=== PATIENT | male | born 1965 | race Caucasian/White ===

== ENCOUNTER 2018-04-03 12:26 | Emergency (ER) | payer OTHER ==
[2018-04-03 13:13] VITALS: BP 126/80
--- NOTE | 2018-04-03 13:33 | UC ---
[facility] Dental HPI - HPI Summary HPI Summary: pain back left teeth with some swelling--erythema around teeth some swelling-- no fevers , chills - History of Current Complaint Chief Complaint: UCDentalProblem Stated Complaint: DENTAL COMPLAINT Time Seen by Provider: 04/03/18 13:21 Hx Obtained From: Patient Onset/Duration: Sudden Onset Pain Intensity: 3 Pain Scale Used: 0-10 Numeric Aggravating Factor(s): Nothing Alleviating Factor(s): Nothing Related History: Previous Dental Care on Same Tooth, Swelling - Allergies/Home Medications Allergies/Adverse Reactions: Allergies Allergy/AdvReac Type Severity Reaction Status Date / Time No Known Allergies Allergy Verified 04/03/18 13:06 Home Medications: Home Medications Terbinafine HCl 1 tab DAILY 04/03/18 [History Confirmed 04/03/18] PMH/Surg Hx/FS Hx/Imm Hx Previously Healthy: Yes - Surgical History Surgical History: Yes Surgery Procedure, Year, and Place: Sinus surgery - Family History Known Family History: Positive: None - Social History Occupation: Employed Full-time Lives: With Family Alcohol Use: Daily Alcohol Amount: 2-3 beers per day Substance Use Type: None Smoking Status (MU): Former Smoker Type: Cigarettes Amount Used/How Often: 4 cigs per day Length of Time of Smoking/Using Tobacco: 6 years Have You Smoked in the Last Year: Yes When Did the Patient Quit Smoking/Using Tobacco: trying to quit Household Exposure Type: Cigarettes Review of Systems All Other Systems Reviewed And Are Negative: Yes Constitutional: Positive: Negative Skin: Positive: Negative Eyes: Positive: Negative ENT: Positive: Dental Pain - left side of face painful Respiratory: Positive: Negative Cardiovascular: Positive: Negative Gastrointestinal: Positive: Negative Genitourinary: Positive: Negative Motor: Positive: Negative Neurovascular: Positive: Negative Musculoskeletal: Positive: Negative Neurological: Positive: Negative Psychological: Positive: Negative Is Patient Immunocompromised?: No Physical Exam Triage Information Reviewed: Yes Appearance: Well-Appearing, No Pain Distress, Well-Nourished Vital Signs: Initial Vital Signs Temp 97.4 F 04/03/18 13:08 Pulse 65 04/03/18 13:08 Resp 16 04/03/18 13:08 BP 126/80 04/03/18 13:08 Pulse Ox 99 04/03/18 13:08 Vital Signs Reviewed: Yes Eye Exam: Normal Eyes: Positive: Conjunctiva Clear ENT Exam: Normal ENT: Positive: Normal ENT inspection, Hearing grossly normal, Pharynx normal, TMs normal, Dental tenderness, Uvula midline. Negative: Nasal congestion, Nasal drainage, Trismus, Muffled voice, Hoarse voice, Sinus tenderness Dental Exam: Normal Neck exam: Normal Neck: Positive: Supple, Nontender, No Lymphadenopathy Respiratory Exam: Normal Respiratory: Positive: Chest non-tender, Lungs clear, Normal breath sounds, No respiratory distress, No accessory muscle use Cardiovascular Exam: Normal Cardiovascular: Positive: RRR, No Murmur, Pulses Normal, Brisk Capillary Refill Musculoskeletal Exam: Normal Musculoskeletal: Positive: Strength Intact, ROM Intact, No Edema Neurological Exam: Normal Neurological: Positive: Alert, Muscle Tone Normal Psychological Exam: Normal Skin Exam: Normal Dental Complaint Course/Dx - Course Course Of Treatment: perodex rinse, amoxicillin, tylenol/ibuprofen follow with dentist as planned - Differential Dx/Diagnosis Provider Diagnosis: Dental abscess Discharge - Sign-Out/Discharge Documenting (check all that apply): Patient Departure All imaging exams completed and their final reports reviewed: No Studies - Discharge Plan Condition: Stable Disposition: HOME Prescriptions: Amoxicillin PO (*) [Amoxicillin 875 MG (*)] 875 mg PO BID #20 tab Chlorhexidine MW 0.12% 473ML* [Peridex Mouth Wash 0.12%*] 15 ml MT BID #473 ml Patient Education Materials: Dental Abscess (ED), Toothache (ED) Referrals: Harlan Moffett MD [Primary Care Provider] - If Needed - Billing Disposition and Condition Condition: STABLE Disposition: Home - Attestation Statements Provider Attestation: I was available for consult. This patient was seen by the RASHAD. The patient was not presented to, seen by, or examined by me. EK
== END 2018-04-03 13:42 | disposition home or self-care (01) ==
LOC: UCCORT 12:26
DX: K04.7 Periapical abscess without sinus (principal); Z87.891 Personal history of nicotine dependence
CPT/HCPCS: 99202; G0463

== ENCOUNTER → 2018-07-05 05:42 | Day surgery (SDC) | payer OTHER ==
[~2018-07-05 05:42] MED LIST: Acetaminophen TAB* 325 MG PO PRN; Buffered Lidocaine 1% SYRIN* 1 ML/SYRINGE INTRADERM ONE; Bupivacaine 0.5% W/EPI SDV* 30 ML VIAL ONE; Bupivacaine 0.5%* 50 ML VIAL ONE; KETAMINE HCL* 50 MG/ML 10 ML VIAL ONE; Ketorolac INJ* 30 MG/ML 1 ML VIAL IV PRN; Lactated Ringers 1000 ML Bag* 1,000 ML IV SCH; Lidocaine 1% INJ* 10 MG/ML 30 ML SDV ONE; Lidocaine 2% PF * 5 ML VIAL ONE; Midazolam* 1 MG/ML 2 ML VIAL (2 MG) ONE; Naloxone* 0.4 MG/ML 1 ML VIAL IV PRN; Ondansetron ODT TAB* 4 MG PO PRN; Propofol* 10 MG/ML 20 ML BTL ONE; Propofol* 500 MG/50 ML BTL ONE; ceFAZolin 2 GM in NS PREMIX(*) 2 GM/100 ML BAG IVPB ONE; fentaNYL* 50 MCG/ML 2 ML VIAL (100 MCG VIAL) IV PRN; fentaNYL* 50 MCG/ML 2 ML VIAL (100 MCG VIAL) ONE; oxyCODONE TAB* 5 MG TAB PO PRN
--- NOTE | 2018-07-05 09:16 | OP ---
CC: Dr. Harlan Moffett * DATE OF OPERATION: 07/05/[address] - [facility] DATE OF : 61 SURGEON: Cleve Horn MD. [employer] CONSULTANT: ANASTACIA Butler. PRE-OP DIAGNOSIS: Umbilical hernia. POST-OP DIAGNOSIS: Umbilical hernia. OPERATIVE PROCEDURE: Repair of umbilical hernia with mesh, open. INDICATIONS FOR PROCEDURE: Umbilical hernia. Risks included but not limited to bleeding, infection, injury to intraabdominal contents including the bowel explained to the patient who seemed to understand and agreed to the procedure and all questions were answered. DESCRIPTION OF PROCEDURE: The patient was taken to the operating room, placed supine. Preoperative antibiotics were given. After the successful induction of MAC sedation anesthesia, the abdomen was prepped and draped in sterile fashion. Time-out was preformed, correct patient and correct procedure. Skin was anesthetized with 0.5% Marcaine plain. A curvilinear incision was made below the umbilicus and carried down to the subcutaneous tissue. The hernia sac was opened revealing some incarcerated omentum, which was reduced back in the abdomen as a small defect. A finger was placed to the defect and the anterior abdominal wall was swept and found to be free of any adhesions. A Ventralex mesh patch was then placed through the defect, pulled up against the anterior abdominal wall and sutured in place with interrupted 0 Vicryl suture. Mesh size was small. EBL minimal. Hemostasis was intact. 3-0 Vicryl was used to approximate the deep layer, and the skin was closed with Monocryl and then glue. He tolerated the procedure well. He was taken to Recovery in stable condition. [id number]/[facility] #: [id number] [facility]
[2018-07-05 09:51] VITALS: BP 132/89
== END | disposition home or self-care (01) ==
LOC: OR 05:42
PROVIDERS: ATTEND Surgery
DX: K42.9 Umbilical hernia without obstruction or gangrene (principal); Z87.891 Personal history of nicotine dependence; E78.5 Hyperlipidemia, unspecified
CPT/HCPCS: C1781; J0690; J2250; J2704; J3010

== ENCOUNTER 2018-09-21 07:13 | Observation (INO) | payer OTHER ==
--- NOTE | 2018-09-21 07:34 | ED ---
HPI Chest Pain - HPI Summary HPI Summary: A 52 y/o male presents to [facility] with a chief complaint of intermittent chest tightness for two weeks. Per triage note, the patient denies SOB or palpitations , radiating pain, and claims that nothing alleviates or aggravates his symptoms. At triage he rated his pain as a 0/10 in severity. He reports that he has a little tightness now but no pain. He says that he waited long due to dizziness. He denies SOB or feeling tachycardic. He denies HTN or DM but has HLD. He is not on medications for HLD. He had a stress test a long time ago. He is a former smoker, quitting 8 months ago. He claims that he used to smoke 7 cigarettes a day. He denies a Hx of bloodclots in legs or lungs. 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 He denies feeling worse with exertion. - History of Current Complaint Chief Complaint: EDChestPainROMI Time Seen by Provider: 09/21/18 07:25 Hx Obtained From: Patient Onset/Duration: Started Weeks Ago, Still Present Timing: Intermittent Initial Severity: Mild Current Severity: None Pain Intensity: 0 Pain Scale Used: 0-10 Numeric Chest Pain Location: Diffuse Chest Pain Radiates: No Character: Tightness Aggravating Factor(s): Nothing Alleviating Factor(s): Nothing Associated Signs and Symptoms: Negative: Shortness of Breath, Fever, Palpitations - Allergy/Home Medications Allergies/Adverse Reactions: Allergies Allergy/AdvReac Type Severity Reaction Status Date / Time No Known Allergies Allergy Verified 09/21/18 07:18 Home Medications: Home Medications NK [No Home Medications Reported] 09/21/18 [History Confirmed 09/21/18] PMH/Surg Hx/FS Hx/Imm Hx Endocrine/Hematology History: Denies: Hx Diabetes, Hx Thyroid Disease Cardiovascular History: Reports: Hx Hypercholesterolemia Denies: Hx Hypertension Respiratory History: Reports: Hx Asthma - ONLY Sx CHILD Denies: Hx Chronic Obstructive Pulmonary Disease (COPD) GI History: Reports: Hx Jaundice Denies: Hx Ulcer - Surgical History Surgery Procedure, Year, and Place: 1999 Sinus surgery [place] Hx Anesthesia Reactions: No Infectious Disease History: No Infectious Disease History: Denies: Hx Hepatitis, Hx Human Immunodeficiency Virus (HIV), Traveled Outside the [place] in Last 30 Days - Family History Known Family History: Negative: Cardiac Disease - Social History Alcohol Use: Daily Alcohol Amount: 3 beers/day Substance Use Type: Reports: None Smoking Status (MU): Former Smoker Type: Cigarettes Amount Used/How Often: LESS THEN 1/2 PPD ONLY SMOKED ABOUT 6 YRS QUIT 12/2017 Length of Time of Smoking/Using Tobacco: 6 years Have You Smoked in the Last Year: Yes Review of Systems Negative: Fever Positive: Chest Pain. Negative: Palpitations Negative: Shortness Of Breath All Other Systems Reviewed And Are Negative: Yes Physical Exam - Summary Physical Exam Summary: GENERAL: Patient is a well-developed and nourished M who is lying comfortable in the stretcher. Patient is not in any acute respiratory distress. HEAD AND FACE: Normocephalic EYES: PERRLA, EOMI x 2. EARS: Hearing grossly intact. MOUTH: Oropharynx within normal limits. NECK: Supple, trachea is midline, no adenopathy, no JVD, no carotid bruit. CHEST: Symmetric, no tenderness at palpation LUNGS: Clear to auscultation bilaterally. No wheezing or crackles. CVS: Regular rate and rhythm, S1 and S2 present, no murmurs or gallops appreciated. ABDOMEN: Soft, non-tender. Bowel sounds are normal. No abnormal abdominal pulsations. EXTREMITIES: Full ROM in all major joints, no edema, no cyanosis or clubbing. NEURO: Alert and oriented x 3. No acute neurological deficits. Speech is normal and follows commands. SKIN: Dry and warm Triage Information Reviewed: Yes Vital Signs On Initial Exam: Initial Vitals Temp Pulse Resp BP Pulse Ox 97.2 F 63 16 146/94 97 09/21/18 07:15 09/21/18 07:15 09/21/18 07:15 09/21/18 07:15 09/21/18 07:15 Vital Signs Reviewed: Yes Diagnostics - Vital Signs Vital Signs Temp Pulse Resp BP Pulse Ox 09/21/18 07:15 97.2 F 63 16 146/94 97 - Laboratory Result Diagrams: 09/21/18 07:38 09/21/18 07:38 Lab Statement: Any lab studies that have been ordered have been reviewed, and results considered in the medical decision making process. - Radiology CXR Radiology Interpretation Completed By: Radiologist Summary of Radiographic Findings: No radiographic evidence for acute cardiopulmonary abnormality on this. portable chest x-ray. ED physician has reviewed this imaging report. - EKG 07:26 Cardiac Rate: NL - 67 bpm EKG Rhythm: Sinus Rhythm EKG Comparison: No Significant Change Summary of EKG Findings: NSR at 67 bpm, LAD, ST depression in the inferior leads. Re-Evaluation - Re-Evaluation First Eval Re-Evaluation Time: 08:34 Change: Unchanged Comment: discussed results. Will speak with hospitalist about getting a stress test today because the patient does not want to stay overnight. Second Eval Re-Evaluation Time: 08:59 Change: Unchanged Comment: Discussed plan for admission Chest Pain Course/Dx - Course Course Of Treatment: A 52 y/o male presents to [facility] with a chief complaint of intermittent chest tightness for two weeks. The physical exam was unremarkable. EKG at 07:26 showed NSR at 67 bpm, LAD, ST depression in the inferior leads. In the ED course the patient was given Aspirin PO and NTG SL. Bloodwork and chemistries obtained and are WNL. CXR impression: No radiographic evidence for acute cardiopulmonary abnormality on this. portable chest x-ray. Case discussed with Dr. Gunter, hospitalist, who accepted the patient for admission. I discussed results with patient. The patient agrees with this plan. - Diagnoses Provider Diagnoses: Chest pain - Provider Notifications Discussed Care Of Patient With: Lisbeth Gunter Time Discussed With Above Provider: 08:39 Instructed by Provider To: Other - recommended calling nuclear medicine to see if they have availability for a stress test today. Discharge - Sign-Out/Discharge Documenting (check all that apply): Patient Departure - admit Patient Received Moderate/Deep Sedation with Procedure: No - Discharge Plan Condition: Fair Disposition: ADMITTED TO [facility] Referrals: Harlan Moffett MD [Primary Care Provider] - - Billing Disposition and Condition Condition: FAIR Disposition: Admitted to [facility] - Attestation Statements Document Initiated by Scribe: Yes Documenting Scribe: Jose Bashir Provider For Whom Sarah Beth is Documenting (Include Credential): Asher Echevarria MD Scribe Attestation: Jose Small scribed for Asher Echevarria MD on 09/21/18 at 0921. Scribe Documentation Reviewed: Yes Provider Attestation: The documentation as recorded by the scribe, Jose DesRochers accurately reflects the service I personally performed and the decisions made by me, Samuel Echevarria MD Status of Scribe Document: Viewed Consult Consult: At 08:41 Discussed case with nuclear medicine who recommended calling cardio. At 08:42 Discussed case with cardio who reports that the hospitalist should put the stress test order through to get the patient in within 24 hours. At 08:[address] Gunter, hospitalist, who will admit the patient.
[2018-09-21 07:45] LABS: ABS Basophils 0.1 10^3/ul (0-0.2); ABS Eosinophils 0.2 10^3/ul (0-0.6); ABS Lymphocytes 1.4 10^3/ul (1.0-4.8); ABS Monocytes 0.5 10^3/ul (0-0.8); ABS Neutrophils 4.6 10^3/ul (1.5-7.7); Eosinophil % 3.7 %; Hematocrit 46 % (42-52); Hemoglobin 15.3 g/dL (14.0-18.0); Lymphocyte % 20.4 %; Mean Corpuscular HGB Conc 34 g/dL (31-36); Mean Corpuscular Hemoglobin 30 pg (27-31); Mean Corpuscular Volume 90 fL (80-94); Mean Platelet Volume 9.8 fL (7.4-10.4); Platelet Count 144 10^3/uL (150-450); Red Blood Count 5.09 10^6 /uL (4.18-5.48); Red Cell Distribution Width 14 % (10-15); White Blood Count 6.8 10^3/uL (3.5-10.8)
[2018-09-21] MEDS ORDERED: Nitroglycerin TAB 0.4 MG* 0.4 MG TAB SL ONE (07:53)
[2018-09-21] MEDS ORDERED: Aspirin 81 mg CHEW TAB* 81 MG TAB.CHEW PO ONE (07:53)
[2018-09-21 07:54] LABS: Activated Partial Thrombo Time 36.2 seconds (26.0-38.0)
[2018-09-21 08:02] LABS: Albumin 4.3 g/dL (3.2-5.2); Albumin/Globulin Ratio 1.6 (1-3); BUN/Creatinine Ratio 17.4 (8-20); Calcium 9.4 mg/dL (8.6-10.3); EGFR African American 112.1 (>60); EGFR Non-African American 92.7 (>60); Globulin 2.7 g/dL (2-4); Potassium 3.8 mmol/L (3.5-5.0); Total Bilirubin 0.6 mg/dL (0.2-1.0)
[2018-09-21] MEDS ORDERED: Al Hydrox/Mg Hydrox/Simet LIQ* 30 ML UDC PO PRN (09:37)
[2018-09-21] MEDS ORDERED: Acetaminophen TAB* 325 MG PO PRN (09:37)
--- NOTE | 2018-09-21 10:50 | HP ---
CC: Dr. Moffett * HISTORY AND PHYSICAL: DATE OF ADMISSION: 09/21/18 PRIMARY CARE PROVIDER: Dr. Moffett. CHIEF COMPLAINT: Chest pain. HISTORY OF PRESENT ILLNESS: Roberto Suárez is a 52-year-old male with a history of asthma and recent umbilical hernia repair in June of 2018, who presented to the hospital concerned for his left-sided chest pain. The patient actually stated that it is not chest pain but sensation of pulling underneath his left breast. He stated that he would have it occasionally for the past 2 weeks. It would last up to 2 hours. This sensation is not associated with shortness of breath or diaphoresis. It is not associated with exercise. The patient stated that it occurs occasionally, but usually when he is active he does not feel it. He has been sleeping well and the discomfort does not occur at night. His exercise tolerance is unchanged. The patient was recommended by the ED physician for overnight observation with stress test in the morning. MEDICATIONS: Currently none. ALLERGIES: No known drug allergies. FAMILY HISTORY: Father's history is unknown. Mother with a history of breast cancer. One sister with melanoma and another sister with breast cancer and thyroid problems. SOCIAL HISTORY: The patient has a history of smoking for 10 years, half a pack per day and he quit 8 months ago. He denies any drug use and he drinks 3 beers a day. 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 He lives with his daughter and his surrogate is his sister Sheri Perez. REVIEW OF SYSTEMS: Please see history of present illness. All the remaining 12 systems were reviewed with the patient and were otherwise negative with the exception of that the patient stated after he stopped smoking he had an unintentional weight gain of approximately 20 pounds for the past year. PHYSICAL EXAMINATION GENERAL: The patient is a pleasant 52-year-old male who is in no acute distress. Alert, awake, and oriented x3. VITAL SIGNS: Blood pressure 122/75, heart rate of 63 and regular, respiratory rate 17, oxygen saturation 97% on room air, temperature 97.2. HEENT: Head atraumatic, normocephalic. Eyes: Pupils are equal, round, and reactive to light and accommodation. Oropharynx clear. Mucosa moist. NECK: Supple. No JVD. No bruits bilaterally. RESPIRATORY: Clear to auscultation bilaterally. CARDIOVASCULAR: Regular rate and rhythm. No murmur. ABDOMEN: Soft and nontender. Bowel sounds present in all 4 quadrants. EXTREMITIES: There is no edema. Pulses +2 bilaterally. No clubbing or cyanosis. NEUROLOGIC: Speech clear. Cranial nerves II through XII grossly intact. Motor strength is 5/5 bilaterally. SKIN: On evaluation of the skin, the patient's umbilical incision after the umbilical hernia repair has healed with no evidence of dehiscence. PSYCHIATRIC: The patient is oriented x3 with no evidence of anxiety or depression. LABORATORY DATA: Shows a white blood cell count of 6.8, hemoglobin of 15.3, hematocrit of 46, and platelets of 144. D-dimer was below 200. Sodium was 135, potassium 3.8, chloride 102, carbon dioxide 36, BUN 15, creatinine of 0.86. Liver function tests were unremarkable. Troponin of 0. The patient's EKG shows normal sinus rhythm with a heart rate of 67 beats per minute with no specific ST-depressions in leads 1 and 2 and negative T in lead 3 that is consistent with prior EKGs. Portable chest x-ray, impression: "No radiographic evidence for acute cardiopulmonary abnormality on his portable chest x-ray." ASSESSMENT AND PLAN: 1. Somewhat unspecific chest pain. The patient with a history of smoking and obesity. The patient is going to be placed on overnight observation with a plan for stress test in the morning. He is going to be placed on daily baby aspirin and will follow up his troponins. 2. For DVT prophylaxis, heparin is going to be started subcu. 3. The patient's code status is full and his surrogate is his sister as mentioned above. TIME SPENT: Approximately 55 minutes was spent on admission of this patient, more than half that time was spent [id number] with the patient during the interview and physical exam. [id number]/[facility] #: [id number] [facility]
[2018-09-21] MEDS: Heparin VIAL(*) 5000 UNITS/ML VIAL (FIVE THOUSAND) SUBCUT SCH ×2 (13:34→22:25)
[2018-09-22] MEDS: Heparin VIAL(*) 5000 UNITS/ML VIAL (FIVE THOUSAND) SUBCUT SCH (05:36)
[2018-09-22] MEDS ORDERED: Aspirin EC TAB* 81 MG TAB.EC PO SCH (09:00)
[2018-09-22 11:44] LABS: HDL Cholesterol 62.2 mg/dL
[2018-09-22 11:48] VITALS: BP 110/73
--- NOTE | 2018-09-22 14:41 | DS ---
CC: Dr. Moffett * DISCHARGE SUMMARY: DATE OF ADMISSION: 09/21/18 DATE OF DISCHARGE: 09/22/18 PRIMARY CARE PROVIDER: Dr. Moffett. CONDITION AT DISCHARGE: Stable. DISCHARGE DISPOSITION: To home. DISCHARGE DIAGNOSES: 1. Chest pain with low probability, but documented a small area of ischemia in the inferior wall. 2. Dyslipidemia. MEDICATION AT DISCHARGE: Aspirin 81 mg daily. LABORATORY DATA: Included: D-dimer was below 200. Troponins were 0 throughout the patient's hospital stay. Cholesterol profile shows triglycerides 102, cholesterol total 205, LDL 122, and HDL 62. Nuclear portion of the patient's cardiac stress test documented on 09/22/18 showed findings suggestive of a small area of ischemia of inferior wall with low risk and EF of 56%. HOSPITALIZATION COURSE: Roberto Suárez is a 52-year-old male who has gained about 20 pounds of weight in the past several months after he stopped smoking. He presented to the hospital complaining of pulling chest pain underneath his left breast. The patient stated that the pain does not happen when he is active and exercising, but then he joked "he never exercises." He stated that the pain is there when he is stationary but he is trying to move his trunk. His troponins were negative throughout his hospital stay. His stress test showed low probability, but there was a small area of inferior wall ischemia. I discussed it with the couture dressmaker first front ventilator. Unfortunately, it could be diaphragmatic attenuation, but it is difficult at this point to discern it. I discussed with the patient that if he has an area of ischemia in the heart, it is very small and would not be amenable for intervention. Nevertheless, at this point the patient to lose weight, continue exercising. The patient also should be on baby aspirin a day to improve his cholesterol. He was offered a statin medication, but he refused and he is more interested in diet management. The patient is recommended to follow up with Dr. Moffett in 4 to 7 days. Physical exam at the time of discharge is unchanged from admission. Please note that this is a short summary of the patient's hospitalization. Please refer to further medical records for details. TIME SPENT: Approximately 35 minutes was spent on the patient's discharge. [id number]/[facility] #: [id number] [facility]
== END 2018-09-22 13:57 | disposition home or self-care (01) ==
LOC: ED 07:13 → MEDTELE 09:37
PROVIDERS: ADMIT Internal Medicine; ATTEND Internal Medicine
DX: R07.9 Chest pain, unspecified (principal); E78.5 Hyperlipidemia, unspecified; Z79.82 Long term (current) use of aspirin; Z87.891 Personal history of nicotine dependence; Z87.710 Personal history of (corrected) hypospadias; E78.00 Pure hypercholesterolemia, unspecified
CPT/HCPCS: 36415; 71045; 78452; 80053; 80061; 83605; 83735; 83880; 84484; 85025; 85379; 85610; 85730; 93005; 93017; 99284; A9270-GY; A9502; G0378; J1644